=== PATIENT | male | born 1960 | race Caucasian/White ===

== ENCOUNTER 2024-03-11 21:15 | Emergency (ER) | payer MEDICAID, OTHER ==
[~2024-03-11] VITALS: Ht 165.1 cm; Wt 65.0 kg
[2024-03-11] MEDS ORDERED: MAGNESIUM SULF 50% 40 MEQ/10 ML VL IV ONE (21:16)
== END 2024-03-12 00:34 ==
LOC: EDBD 21:15 → ER 21:15
DX: I46.9 Cardiac arrest, cause unspecified (principal)
CPT/HCPCS: 92950